=== PATIENT | female | born 1980 | race Caucasian/White ===

== ENCOUNTER 2017-02-24 05:51 | Day surgery (SDC) | payer BC, OTHER ==
[~2017-02-24] VITALS: Ht 170.2 cm; Wt 65.3 kg
[~2017-02-24 05:51] MED LIST: JUICLIQ5 PO
[2017-02-24] MEDS ORDERED: LR 1,000 ML IV ONE (06:00)
[2017-02-24] MEDS ORDERED: LIDOCAINE 1% MDV 20ML VIAL SC ONE (06:00)
[2017-02-24] MEDS ORDERED: ACETAMINOPHEN 650 MG SUPP PR ONE (06:00)
[2017-02-24 06:30] LABS: MEAN CORPUSCULAR HEMOGLOBIN 28.6 pg (27.0-33.0); MEAN CORPUSCULAR HGB CONC 32.4 g/dl (32.0-36.5); MEAN CORPUSCULAR VOLUME 88.4 fl (80.0-96.0); PLATELET COUNT, AUTOMATED 261 10^3/uL (150-450); RED CELL DISTRIBUTION WIDTH 16.4 % (11.5-14.5); WHITE BLOOD COUNT 4.8 10^3/uL (4.0-10.0)
[2017-02-24 06:50] LABS: CONTROL LINE HCG INT CTR LINE PRESENT
[2017-02-24] MEDS ORDERED: LIDOCAINE 2% INJ 100 MG/5 ML SDV (FOR ANES.) As Ordered ONE (07:44)
[2017-02-24] MEDS ORDERED: dexameTHASONE 4 MG/ML 1ML VIAL (J1100) As Ordered ONE (07:44)
[2017-02-24] MEDS ORDERED: PROPOFOL 200 MG/20 ML VIAL As Ordered ONE (07:44)
[2017-02-24] MEDS ORDERED: fentaNYL 100 MCG/2 ML INJECTION (J3010) As Ordered ONE (07:44)
[2017-02-24] MEDS ORDERED: MIDAZOLAM INJ 2 MG/2 ML VIAL (J2250) As Ordered ONE (07:44)
[2017-02-24] MEDS ORDERED: ACETAMINOPHEN 650 MG SUPP As Ordered ONE (07:44)
[2017-02-24] MEDS ORDERED: ePHEDrine SULFATE 25 MG/5 ML(5MG/ML) SYRINGE As Ordered ONE (07:52)
[2017-02-24] MEDS ORDERED: PERC5TAB12 PO (07:59)
[2017-02-24] MEDS ORDERED: PERCOCET 5MG/325MG TAB As Ordered ONE (08:47)
[2017-02-24] MEDS: PERCOCET 5MG/325MG TAB PO PRN ×2 (08:49→09:38)
[2017-02-24] MEDS ORDERED: ONDANSETRON 4MG/2ML VIAL (J2405) IV PRN (09:15)
[2017-02-24] MEDS ORDERED: fentaNYL 100 MCG/2 ML INJECTION (J3010) IV PRN (09:15)
[2017-02-24] MEDS ORDERED: LR 1,000 ML IV SCH (09:15)
[2017-02-24 10:17] VITALS: BP 110/69
--- NOTE | 2017-02-24 17:48 | RO ---
DATE OF PROCEDURE: 02/24/2017 Elysia is a 36-year-old female with extensive history of menometrorrhagia. After counseling in the office, a decision was made for a dilatation and curettage, hysteroscopy and NovaSure endometrial ablation. PREOPERATIVE DIAGNOSIS: 1. Menometrorrhagia. POSTOPERATIVE DIAGNOSIS: 1. Menometrorrhagia. PROCEDURE: 1. Dilatation and curettage. 2. Hysteroscopy. 3. NovaSure endometrial ablation. SURGEON: Kody Braden DO IMMERSION METALCLEANER: ANESTHESIA: General. COMPLICATIONS: None. ESTIMATED BLOOD LOSS: Less than 10 mL. FINDINGS: Normal appearing endometrial cavity, sounding to approximately 9 cm in size, giving a total cavity length of 6.5. The cavity appeared to be within normal limits. SPECIMENS SENT TO LAB: Endometrial curettings. PROCEDURE: After obtaining informed consent with the patient and reaffirming that in the preoperative area, the patient was then taken to the operating room where under general anesthesia she was then draped and prepped in the usual sterile fashion in dorsal lithotomy position. After a time out, we then drained her bladder for approximately 700 mL of clear urine. A weighted speculum was placed in the posterior fornix of the vagina. Using a Harding retractor, the anterior lip of the cervix was then grasped with a single tooth tenaculum. The uterus was sound to approximately 9 cm giving a total cavity length of 6.5. The cervix was serially dilated. The hysteroscope was inserted with the above-noted findings. At this point, the hysteroscope was removed. A sharp curettage of the endometrial lining was done, and then the NovaSure endometrial device was inserted with the cavity length adjusted to 6.5 and the cavity width to 4.3. We then performed a cavity test. After passing the cavity test, the device was enabled. The endometrial ablation cycle was then started. The cycle lasted approximately 1 minute and 3 seconds with good ablative process noted. Good hemostasis noted. The patient tolerated the procedure well. She was then transferred to recovery room in stable condition.
== END 2017-02-24 10:43 | disposition home or self-care (01) ==
LOC: M SDC 05:51
PROVIDERS: ATTEND Obstetrics & Gynecology
DX: N92.0 Excessive and frequent menstruation with regular cycle (principal); N84.0 Polyp of corpus uteri
CPT/HCPCS: 36415; 58563; 84703; 85027; 86850; 86900; 86901; 88305; A4649; J1100; J2250; J3010

== ENCOUNTER → 2017-05-25 | Outpatient (CLI) | payer BC ==
[2017-05-25 09:15] LABS: ALBUMIN 4.8 GM/DL (3.2-5.2); ALKALINE PHOSPHATASE 56 U/L (45-117); ALT/SGPT 18 U/L (12-78); ANION GAP 6 MEQ/L (8-16); AST/SGOT 12 U/L (7-37); BILIRUBIN,TOTAL 0.6 MG/DL (0.2-1.0); BLOOD UREA NITROGEN 14 MG/DL (7-18); CALCIUM LEVEL 9.4 MG/DL (8.5-10.1); CARBON DIOXIDE LEVEL 29 MEQ/L (21-32); CHLORIDE LEVEL 103 MEQ/L (98-107); CHOLESTEROL LEVEL 226 MG/DL (<200); CHOLESTEROL RISK RATIO 2.132 (<5); CREATININE FOR GFR 0.89 MG/DL (0.55-1.02); GLOMERULAR FILTRATION RATE > 60.0 (>60); GLUCOSE, FASTING 83 MG/DL (70-105); HDL CHOLESTEROL 106 MG/DL (>40); NON-HDL-C 120 MG/DL; POTASSIUM SERUM 3.9 MEQ/L (3.5-5.1); SODIUM LEVEL 138 MEQ/L (136-145); THYROID STIMULATING HORMONE 0.907 uIU/ML (0.358-3.740); TRIGLYCERIDES LEVEL 50 MG/DL (<150)
== END ==
LOC: M LAB 07:56
DX: Z13.29 Encounter for screening for other suspected endocrine disorder (principal); Z13.220 Encounter for screening for lipoid disorders
CPT/HCPCS: 84443

== ENCOUNTER → 2018-07-06 | Outpatient (CLI) | payer BC ==
[~2018-07-06] MED LIST changes: +PERC5TAB12 PO
[2018-07-06 15:27] LABS: BASO # 0.1 10^3/uL (0.0-0.2); BASO % 1.2 % (0.0-1.0); EOS # 0.1 10^3/uL (0.0-0.50); EOS % 1.3 % (0.0-3.0); HEMATOCRIT 40.2 % (36.0-47.0); HEMOGLOBIN 13.4 g/dl (12.0-15.5); LYMPH # 1.8 10^3/uL (1.5-4.5); LYMPH % 29.6 % (24.0-44.0); MEAN CORPUSCULAR HEMOGLOBIN 31.5 pg (27.0-33.0); MEAN CORPUSCULAR HGB CONC 33.3 g/dl (32.0-36.5); MEAN CORPUSCULAR VOLUME 94.6 fl (80.0-96.0); MONO # 0.4 10^3/uL (0.0-0.8); MONO % 6.3 % (0.0-5.0); NEUTROPHILS # 3.7 10^3/uL (1.8-7.7); NEUTROPHILS % 61.4 % (36.0-66.0); PLATELET COUNT, AUTOMATED 263 10^3/uL (150-450); RED BLOOD COUNT 4.25 10^6/uL (4.00-5.40); WHITE BLOOD COUNT 6.1 10^3/uL (4.0-10.0)
[2018-07-06 15:59] LABS: ALBUMIN 4.6 GM/DL (3.2-5.2); ALT/SGPT 18 U/L (12-78); AMYLASE 39 U/L (25-115); BILIRUBIN,TOTAL 0.8 MG/DL (0.2-1.0); BLOOD UREA NITROGEN 19 MG/DL (7-18); CALCIUM LEVEL 9.1 MG/DL (8.5-10.1); CARBON DIOXIDE LEVEL 28 MEQ/L (21-32); CHLORIDE LEVEL 104 MEQ/L (98-107); CREATININE FOR GFR 0.82 MG/DL (0.55-1.30); GLOMERULAR FILTRATION RATE > 60.0 (>60); GLUCOSE, FASTING 79 MG/DL (70-100); LIPASE 90 U/L (73-393); POTASSIUM SERUM 3.8 MEQ/L (3.5-5.1); SODIUM LEVEL 138 MEQ/L (136-145); TOTAL PROTEIN 7.9 GM/DL (6.4-8.2)
== END ==
LOC: M LAB 15:06
PROVIDERS: ATTEND Family Medicine
DX: R10.10 Upper abdominal pain, unspecified (principal)

== ENCOUNTER 2018-07-17 10:26 | Emergency (ER) | payer BC ==
[~2018-07-17] VITALS: Ht 170.2 cm; Wt 67.3 kg
--- NOTE | 2018-07-17 12:37 | REP ---
LIMITED ABDOMINAL ULTRASOUND: 07/17/2018. CLINICAL HISTORY: Supraumbilical pain. Evaluate for hernia. FINDINGS: Supraumbilical midline soft tissue ultrasound shows a supraumbilical hernia. At rest the defect is 6.7 mm in transverse diameter, with Valsalva maneuver 7.2 mm. Bowel is seen within it without peroneal fat. The hernia does not reduce. IMPRESSION: 1. There is a supraumbilical hernia midline with bowel loop within the hernia. With Valsalva maneuver the defect measures 7.2 mm, at rest 6.7 mm. Hernia does not reduce. Electronically Signed by Chente Galvez MD 07/17/2018 08:39 P
[2018-07-17 13:09] VITALS: BP 113/77
--- NOTE | 2018-07-18 16:04 | ED PDOC ---
Post-Departure Follow-Up krupa pittman and nae faxed formal report of abdominal us for fu Christopher Mendoza MD Jul 18, 2018 16:03
== END 2018-07-17 13:17 | disposition home or self-care (01) ==
LOC: M ED 10:26
DX: K43.9 Ventral hernia without obstruction or gangrene (principal)

== ENCOUNTER → 2018-09-04 | Outpatient (CLI) | payer BC ==
[2018-09-04 13:34] LABS: FREE T4 0.92 NG/DL (0.76-1.46); THYROID STIMULATING HORMONE 0.894 uIU/ML (0.358-3.740)
[2018-09-05 11:02] LABS: THYROID PEROXIDASE ANTIBODY < 28.0 U/ML (<60.0)
[2018-09-05 11:03] LABS: THYROGLOBULIN ANTIBODY 18.8 U/ML (<60.0)
== END ==
LOC: M LAB 11:54
PROVIDERS: ATTEND Family Medicine
DX: E04.9 Nontoxic goiter, unspecified (principal)

== ENCOUNTER 2018-10-02 09:21 | Day surgery (SDC) | payer BC ==
[~2018-10-02] VITALS: Ht 170.2 cm; Wt 65.8 kg
[~2018-10-02 09:21] MED LIST changes: +LIDOCAINE 1% MDV 20ML VIAL SQ PRN; +LR 1,000 ML IV ONE
[2018-10-02] MEDS ORDERED: BUPIVACAINE HCL 0.25% 30 ML VIAL As Ordered ONE (11:25)
[2018-10-02] MEDS ORDERED: ONDANSETRON 4MG/2ML VIAL (J2405) As Ordered ONE (14:35)
[2018-10-02] MEDS ORDERED: fentaNYL 100 MCG/2 ML INJECTION (J3010) As Ordered ONE (14:35)
[2018-10-02] MEDS: fentaNYL 100 MCG/2 ML INJECTION (J3010) IV PRN ×4 (14:38→14:53)
[2018-10-02] MEDS ORDERED: IBUPROFEN 400 MG TAB PO PRN (15:00)
[2018-10-02] MEDS ORDERED: LR 1,000 ML IV SCH (15:00)
[2018-10-02] MEDS ORDERED: PERCOCET 5MG/325MG TAB PO PRN (15:00)
[2018-10-02] MEDS ORDERED: ONDANSETRON 4MG/2ML VIAL (J2405) IV PRN (15:00)
[2018-10-02] MEDS ORDERED: NORCO, ANEXSIA 5/325MG TABLET (HYDROcodone/ACETAMINOPHEN) PO PRN (15:00)
[2018-10-02] MEDS ORDERED: ACETAMINOPHEN TAB 650MG DOSE (2X325MG) PO PRN (15:00)
[2018-10-02] MEDS ORDERED: HYDROMORPHONE HCL 0.5 MG/ 0.5 ML SYRINGE (J1170 PER 1) IV PRN (15:00)
[2018-10-02 16:42] VITALS: BP 102/62
--- NOTE | 2018-10-03 07:49 | RO ---
DATE OF PROCEDURE: 10/02/2018 PREOPERATIVE DIAGNOSIS: Epigastric hernia. POSTOPERATIVE DIAGNOSIS: Incarcerated epigastric hernia. PROCEDURE PERFORMED: Repair of incarcerated epigastric hernia with primary closure. SURGEON: Dr. Raudel Levine OPTICAL SCIENTIST: ANESTHESIA: General. INDICATIONS FOR PROCEDURE: The patient is a 37-year-old woman who has noticed a small bulge about 4-5 cm above the umbilicus. She has a persistent small nodule palpable in this area. On several occasions, this has become quite tender. She is now for repair of her small incarcerated epigastric hernia. OPERATIVE PROCEDURE: The patient was brought to the operating room and placed under general endotracheal anesthesia. The patient's abdomen was prepped and draped in a sterile fashion. Palpation of the subcutaneous nodule was performed. An approximately 2 cm transverse skin incision was made directly over the nodule. The incision was deepened into the subcutaneous tissues. As dissection was deepened, a lobulated mass of fibrofatty tissue was identified protruding through a small defect in the fascia that appeared to lie at approximately the midline. The mass of fibrofatty tissue was approximately 2-2.5 cm maximally. This was from surrounding subcutaneous fatty tissue and then carefully transected just above the level of the fascia using the cautery. This was sent as a specimen as hernia sac. The small fascial defect was approximately 6 mm in diameter and roughly oval oriented transversely. Some minimal bleeding at the edge of the wound was controlled with cautery. Palpation and inspection revealed no evidence of any additional fascial defects. The fascial defect was closed with three simple sutures of #3-0 silk. Approximately 10 mL of 0.25% Marcaine were infiltrated around the wound. After ensuring hemostasis, the subcutaneous tissues were approximated with #3-0 chromic. The skin edges were approximated with a running subcuticular #4-0 Vicryl and Steri-Strips. The patient tolerated the procedure well. She was awakened in the operating room, extubated and moved to the recovery room in stable condition.
== END 2018-10-02 16:45 | disposition home or self-care (01) ==
LOC: M SDC 09:21
PROVIDERS: ATTEND Surgery
DX: K43.6 Other and unspecified ventral hernia with obstruction, without gangrene (principal)
CPT/HCPCS: 49572; 88302; J2405

== ENCOUNTER → 2018-10-18 | Outpatient (REF) | payer BC ==
[~2018-10-18] MED LIST changes: -LIDOCAINE 1% MDV 20ML VIAL SQ PRN; -LR 1,000 ML IV ONE
== END ==
LOC: M LAB REF 17:15
PROVIDERS: ATTEND Emergency Medicine
DX: L91.8 Other hypertrophic disorders of the skin (principal)

== ENCOUNTER → 2019-05-28 | Outpatient (CLI) | payer BC ==
[2019-05-28 14:53] LABS: BASO # 0.1 10^3/uL (0.0-0.2); BASO % 1.5 % (0.0-1.0); EOS # 0.1 10^3/uL (0.0-0.5); EOS % 1.1 % (0.0-3.0); HEMATOCRIT 41.7 % (36.0-47.0); HEMOGLOBIN 13.7 g/dl (12.0-15.5); LYMPH # 1.7 10^3/uL (1.5-5.0); LYMPH % 30.6 % (24.0-44.0); MEAN CORPUSCULAR HEMOGLOBIN 31.4 pg (27.0-33.0); MEAN CORPUSCULAR HGB CONC 32.9 g/dl (32.0-36.5); MEAN CORPUSCULAR VOLUME 95.4 fl (80.0-96.0); MONO # 0.5 10^3/uL (0.0-0.8); MONO % 8.8 % (0.0-5.0); NEUTROPHILS # 3.1 10^3/uL (1.5-8.5); NEUTROPHILS % 57.8 % (36.0-66.0); PLATELET COUNT, AUTOMATED 253 10^3/uL (150-450); RED BLOOD COUNT 4.37 10^6/uL (4.00-5.40); WHITE BLOOD COUNT 5.4 10^3/uL (4.0-10.0)
[2019-05-28 15:21] LABS: ALBUMIN 4.7 GM/DL (3.2-5.2); ALT/SGPT 16 U/L (12-78); BILIRUBIN,TOTAL 0.5 MG/DL (0.2-1.0); BLOOD UREA NITROGEN 14 MG/DL (7-18); CALCIUM LEVEL 9.6 MG/DL (8.5-10.1); CARBON DIOXIDE LEVEL 30 MEQ/L (21-32); CHLORIDE LEVEL 103 MEQ/L (98-107); CHOLESTEROL LEVEL 217 MG/DL (<200); CHOLESTEROL RISK RATIO 2.284 (<5); CREATININE FOR GFR 0.81 MG/DL (0.55-1.30); GLOMERULAR FILTRATION RATE > 60.0 (>60); GLUCOSE, FASTING 82 MG/DL (70-100); HDL CHOLESTEROL 95 MG/DL (>40); LDL CHOLESTEROL 108 MG/DL (<100); NON-HDL-C 122 MG/DL; POTASSIUM SERUM 4.4 MEQ/L (3.5-5.1); SODIUM LEVEL 139 MEQ/L (136-145); TOTAL PROTEIN 7.9 GM/DL (6.4-8.2); TRIGLYCERIDES LEVEL 70 MG/DL (<150)
[2019-05-28 15:23] LABS: TOTAL 25(OH) VITAMIN D 44.8 NG/ML (30.0-100.0)
== END ==
LOC: M LAB 14:07
PROVIDERS: ATTEND Family Medicine
DX: E55.9 Vitamin D deficiency, unspecified (principal); Z13.29 Encounter for screening for other suspected endocrine disorder; Z13.220 Encounter for screening for lipoid disorders; Z13.0 Encounter for screening for diseases of the blood and blood-forming organs and certain disorders involving the immune mechanism

== ENCOUNTER → 2020-09-30 | Outpatient (CLI) | payer BC ==
[2020-09-30 11:45] LABS: FREE T4 0.78 NG/DL (0.76-1.46); THYROID STIMULATING HORMONE 0.766 uIU/ML (0.358-3.740)
[2020-10-01 21:07] LABS: ANA (HEP2) Negative (.); Lyme Disease IgG/IgM Antibodie <0.91 ISR (0.00-0.90); Lyme Disease IgM Ab Quantitati <0.80 index (0.00-0.79)
== END ==
LOC: M WUC 08:25
PROVIDERS: ATTEND Family Medicine
DX: R53.83 Other fatigue (principal)

== ENCOUNTER → 2021-06-02 | Outpatient (CLI) | payer BC ==
[2021-06-02 09:55] LABS: BASO # 0.1 10^3/uL (0.0-0.2); BASO % 1.1 % (0.0-1.0); EOS # 0.1 10^3/uL (0.0-0.5); EOS % 1.7 % (0.0-3.0); HEMATOCRIT 40.7 % (36.0-47.0); HEMOGLOBIN 13.3 g/dl (12.0-15.5); LYMPH # 1.5 10^3/uL (1.5-5.0); MEAN CORPUSCULAR HEMOGLOBIN 31.3 pg (27.0-33.0); MEAN CORPUSCULAR HGB CONC 32.7 g/dl (32.0-36.5); MEAN CORPUSCULAR VOLUME 95.8 fl (80.0-96.0); MONO # 0.5 10^3/uL (0.0-0.8); NEUTROPHILS # 3.1 10^3/uL (1.5-8.5); PLATELET COUNT, AUTOMATED 234 10^3/uL (150-450); RED BLOOD COUNT 4.25 10^6/uL (4.00-5.40); WHITE BLOOD COUNT 5.3 10^3/uL (4.0-10.0)
[2021-06-02 10:31] LABS: ALBUMIN 4.5 GM/DL (3.2-5.2); ALT/SGPT 21 U/L (12-78); BILIRUBIN,TOTAL 0.5 MG/DL (0.2-1.0); BLOOD UREA NITROGEN 21 MG/DL (7-18); CALCIUM LEVEL 9.2 MG/DL (8.5-10.1); CARBON DIOXIDE LEVEL 28 MEQ/L (21-32); CHLORIDE LEVEL 102 MEQ/L (98-107); CHOLESTEROL LEVEL 223 MG/DL (<200); CHOLESTEROL RISK RATIO 2.397 (<5); CREATININE FOR GFR 0.83 MG/DL (0.55-1.30); FREE T4 0.78 NG/DL (0.76-1.46); GLOMERULAR FILTRATION RATE > 60.0 (>60); GLUCOSE, FASTING 84 MG/DL (70-100); HDL CHOLESTEROL 93 MG/DL (>40); LDL CHOLESTEROL 112 MG/DL (<100); NON-HDL-C 130 MG/DL; SODIUM LEVEL 137 MEQ/L (136-145); TOTAL PROTEIN 7.7 GM/DL (6.4-8.2); TRIGLYCERIDES LEVEL 88 MG/DL (<150)
[2021-06-02 10:32] LABS: TOTAL 25(OH) VITAMIN D 35.1 NG/ML (30.0-100.0); VITAMIN B12 LEVEL 1889 PG/ML (247-911)
== END ==
LOC: M WUC 08:03
PROVIDERS: ATTEND Family Medicine
DX: D51.9 Vitamin B12 deficiency anemia, unspecified (principal); E55.9 Vitamin D deficiency, unspecified; Z13.29 Encounter for screening for other suspected endocrine disorder; Z13.220 Encounter for screening for lipoid disorders; Z13.0 Encounter for screening for diseases of the blood and blood-forming organs and certain disorders involving the immune mechanism

== ENCOUNTER 2021-08-06 13:09 | Emergency (ER) | payer BC ==
[~2021-08-06] VITALS: Ht 167.6 cm; Wt 67.1 kg
[2021-08-06 13:09] VITALS: BP 140/74
[2021-08-06] MEDS ORDERED: PSEU120T19 PO (16:36)
== END 2021-08-06 16:59 | disposition home or self-care (01) ==
LOC: M ED 13:09
DX: R07.9 Chest pain, unspecified (principal); R05.9 Cough, unspecified; R09.81 Nasal congestion

== ENCOUNTER → 2022-03-01 | Outpatient (REF) | payer BC ==
[~2022-03-01] MED LIST changes: +PSEU120T19 PO
== END ==
LOC: M LAB REF 17:09
PROVIDERS: ATTEND Family Medicine
DX: R30.0 Dysuria (principal)

== ENCOUNTER → 2022-06-24 | Outpatient (CLI) | payer BC ==
[2022-06-24 09:21] LABS: BASO # 0.1 10^3/uL (0.0-0.2); BASO % 1.5 % (0.0-1.0); EOS # 0.1 10^3/uL (0.0-0.5); EOS % 1.5 % (0.0-3.0); HEMATOCRIT 38.9 % (36.0-47.0); HEMOGLOBIN 12.7 g/dl (12.0-15.5); LYMPH # 1.6 10^3/uL (1.5-5.0); LYMPH % 29.4 % (24.0-44.0); MEAN CORPUSCULAR HEMOGLOBIN 31.5 pg (27.0-33.0); MEAN CORPUSCULAR HGB CONC 32.6 g/dl (32.0-36.5); MEAN CORPUSCULAR VOLUME 96.5 fl (80.0-96.0); MONO # 0.4 10^3/uL (0.0-0.8); MONO % 8.1 % (2.0-8.0); NEUTROPHILS # 3.2 10^3/uL (1.5-8.5); NEUTROPHILS % 59.3 % (36.0-66.0); PLATELET COUNT, AUTOMATED 247 10^3/uL (150-450); RED BLOOD COUNT 4.03 10^6/uL (4.00-5.40); WHITE BLOOD COUNT 5.4 10^3/uL (4.0-10.0)
[2022-06-24 09:55] LABS: ALBUMIN 4.2 G/DL (3.2-5.2); ALKALINE PHOSPHATASE 52 U/L (46-116); ALT/SGPT 12 U/L (7.0-40); AST/SGOT 15 U/L (<34); BLOOD UREA NITROGEN 13 MG/DL (9-23); CALCIUM LEVEL 9.4 MG/DL (8.5-10.1); CARBON DIOXIDE LEVEL 29 MMOL/L (20-31); CHLORIDE LEVEL 102 MMOL/L (98-107); CHOLESTEROL LEVEL 205 MG/DL (<200); CHOLESTEROL RISK RATIO 2.38 (<5); GLOMERULAR FILTRATION RATE > 60.0 (>58); GLUCOSE, FASTING 86 MG/DL (60-100); HDL CHOLESTEROL 85.8 MG/DL (>40); NON-HDL-C 119 MG/DL; POTASSIUM SERUM 4.4 MMOL/L (3.5-5.1); SODIUM LEVEL 135 MMOL/L (136-145); THYROID STIMULATING HORMONE 1.409 uIU/ML (0.55-4.78); TOTAL PROTEIN 6.8 G/DL (5.7-8.2); TRIGLYCERIDES LEVEL 51 MG/DL (<150)
== END ==
LOC: M WUC 08:36
PROVIDERS: ATTEND Family Medicine
DX: Z13.29 Encounter for screening for other suspected endocrine disorder (principal); Z13.220 Encounter for screening for lipoid disorders; Z13.0 Encounter for screening for diseases of the blood and blood-forming organs and certain disorders involving the immune mechanism

== ENCOUNTER → 2022-11-15 | Outpatient (REF) | payer BC, OTHER | LOC: M LAB REF 17:01 | PROVIDERS: ATTEND Family Medicine | DX: N39.0 Urinary tract infection, site not specified (principal) ==

== ENCOUNTER → 2023-03-22 | Outpatient (CLI) | payer OTHER | LOC: M WHC 09:30 | PROVIDERS: ATTEND Nurse Practitioner Family | DX: Z13.828 Encounter for screening for other musculoskeletal disorder (principal); Z79.818 Long term (current) use of other agents affecting estrogen receptors and estrogen levels ==

== ENCOUNTER → 2023-06-27 | Outpatient (CLI) | payer OTHER, BC ==
[2023-06-27 12:52] LABS: BASO # 0.1 10^3/uL (0.0-0.2); BASO % 1.7 % (0.0-1.0); EOS # 0.1 10^3/uL (0.0-0.5); EOS % 1.7 % (0.0-3.0); HEMOGLOBIN 13.4 g/dl (12.0-15.5); LYMPH # 1.2 10^3/uL (1.5-5.0); LYMPH % 35.3 % (24.0-44.0); MEAN CORPUSCULAR HEMOGLOBIN 31.7 pg (27.0-33.0); MEAN CORPUSCULAR HGB CONC 32.7 g/dl (32.0-36.5); MEAN CORPUSCULAR VOLUME 96.9 fl (80.0-96.0); MONO # 0.3 10^3/uL (0.0-0.8); MONO % 7.4 % (2.0-8.0); NEUTROPHILS # 1.9 10^3/uL (1.5-8.5); NEUTROPHILS % 53.6 % (36.0-66.0); PLATELET COUNT, AUTOMATED 263 10^3/uL (150-450); RED BLOOD COUNT 4.23 10^6/uL (4.00-5.40); WHITE BLOOD COUNT 3.5 10^3/uL (4.0-10.0)
[2023-06-27 13:16] LABS: ALBUMIN 4.6 G/DL (3.2-5.2); ALKALINE PHOSPHATASE 64 U/L (46-116); ALT/SGPT 16 U/L (7.0-40); AST/SGOT 12 U/L (<34); BILIRUBIN,TOTAL 0.8 MG/DL (0.3-1.2); BLOOD UREA NITROGEN 18 MG/DL (9-23); CALCIUM LEVEL 9.8 MG/DL (8.5-10.1); CARBON DIOXIDE LEVEL 29 MMOL/L (20-31); CHLORIDE LEVEL 102 MMOL/L (98-107); CHOLESTEROL LEVEL 259 MG/DL (<200); FREE T4 1.02 NG/DL (0.89-1.76); GLOMERULAR FILTRATION RATE > 60.0 (>58); GLUCOSE, FASTING 83 MG/DL (60-100); HDL CHOLESTEROL 99.4 MG/DL (>40); LDL CHOLESTEROL 139.4 MG/DL (<100); NON-HDL-C 159.6 MG/DL; POTASSIUM SERUM 4.1 MMOL/L (3.5-5.1); SODIUM LEVEL 136 MMOL/L (136-145); THYROID STIMULATING HORMONE 1.309 uIU/ML (0.55-4.78); TOTAL PROTEIN 7.4 G/DL (5.7-8.2); TRIGLYCERIDES LEVEL 101 MG/DL (<150); VITAMIN B12 LEVEL 978 PG/ML (211-911)
[2023-06-27 13:17] LABS: TOTAL 25(OH) VITAMIN D 52.2 NG/ML (20.0-100.0)
[2023-06-27 13:18] LABS: FOLATE > 24.00 NG/ML (>5.4)
== END ==
LOC: M WUC 08:36
PROVIDERS: ATTEND Family Medicine
DX: Z13.29 Encounter for screening for other suspected endocrine disorder (principal); Z13.220 Encounter for screening for lipoid disorders; Z13.0 Encounter for screening for diseases of the blood and blood-forming organs and certain disorders involving the immune mechanism; D51.9 Vitamin B12 deficiency anemia, unspecified; E55.9 Vitamin D deficiency, unspecified

== ENCOUNTER → 2023-07-04 | Outpatient (CLI) | payer BC ==
[~2023-07-04] MED LIST changes: +PROHANCE 279.3MG/ML 15ML VIAL As Ordered ONE
== END ==
LOC: M RAD 11:46
PROVIDERS: ATTEND Internal Medicine Medical Oncology
DX: R51.9 Headache, unspecified (principal); Z85.3 Personal history of malignant neoplasm of breast
CPT/HCPCS: 70553; A9576

== ENCOUNTER → 2023-09-26 | Outpatient (CLI) | payer BC ==
[~2023-09-26] MED LIST changes: -PROHANCE 279.3MG/ML 15ML VIAL As Ordered ONE
== END ==
LOC: M RAD 10:51
PROVIDERS: ATTEND Obstetrics & Gynecology
DX: N94.10 Unspecified dyspareunia (principal); R10.2 Pelvic and perineal pain

== ENCOUNTER → 2024-02-06 | Outpatient (CLI) | payer BC ==
[2024-02-06 12:05] LABS: ESTRADIOL < 19.0 PG/ML; FOLLICLE STIMULATING HORMONE 2.6 mIU/ML
== END ==
LOC: M LAB 10:38
PROVIDERS: ATTEND Nurse Practitioner Family
DX: C50.812 Malignant neoplasm of overlapping sites of left female breast (principal); Z17.0 Estrogen receptor positive status [ER+]

== ENCOUNTER → 2025-04-01 | Outpatient (CLI) | payer BC | LOC: M WHC 13:04 | PROVIDERS: ATTEND Nurse Practitioner Family | DX: C50.812 Malignant neoplasm of overlapping sites of left female breast (principal); Z79.818 Long term (current) use of other agents affecting estrogen receptors and estrogen levels ==